=== PATIENT | male | born 1960 | race Caucasian/White ===

== ENCOUNTER 2019-02-04 22:33 | Emergency (ER) | payer OTHER ==
[~2019-02-04] VITALS: Ht 185.4 cm; Wt 115.9 kg
[2019-02-04] MEDS ORDERED: normal saline 1000ML IV soln IV ONE (22:55)
[2019-02-04] MEDS ORDERED: ondansetron/PF 4mg/2ml inj IV ONE (22:55)
--- NOTE | 2019-02-04 22:55 | NUR ---
PT TO XRAY
--- NOTE | 2019-02-04 23:01 | NUR ---
PT BACK FROM X RAY
[2019-02-04 23:30] LABS: CLARITY,URINE CLEAR (Clear); COLOR,URINE YELLOW (Yellow); GLUCOSE, URINE NEGATIVE (Neg); KETONES,URINE NEGATIVE (Neg); LEUKOCYTE ESTERASE ,URINE NEGATIVE (Neg); NITRITES, URINE NEGATIVE (Neg); OCCULT BLOOD,URINE NEGATIVE (Neg); PROTEIN,URINE NEGATIVE (Neg)
[2019-02-04 23:31] LABS: UA COLLECTION TYPE CLN CATCH MIDSTREAM
[2019-02-04 23:44] LABS: ALANINE AMINOTRANSFERASE 155 U/L (12-78); ALBUMIN 2.9 G/DL (3.4-5.0); ALBUMIN/GLOBULIN RATIO 0.9 (1.1-1.5); ALKALINE PHOSPHATASE 212 IU/L (46-116); ANION GAP 9 (8-16); ASPARTATE AMINO TRANSFERASE 109 U/L (10-37); BILIRUBIN,TOTAL 0.8 MG/DL (0.1-1.0); BLOOD UREA NITROGEN 7 MG/DL (7-18); BUN/CREATININE RATIO 6.9 (5.4-32.0); CALCIUM 7.8 MG/DL (8.5-10.1); CHLORIDE 96 MMOL/L (99-107); CREATININE 1.02 MG/DL (0.60-1.10); GLUCOSE 153 MG/DL (70-104); MAGNESIUM 1.5 MG/DL (1.5-2.4); POTASSIUM 3.7 MMOL/L (3.5-5.1); SODIUM 131 MMOL/L (135-145); TOTAL CARBON DIOXIDE 26.1 MMOL/L (24-32); TOTAL PROTEIN 6.3 G/DL (6.4-8.2); eGFR 75 ML/MIN
[2019-02-04 23:59] LABS: BASOPHILS # (AUTO) 0.1 X10'3 (0-0.2); BASOPHILS % (AUTO) 1.2 % (0-1); EOSINOPHILS % (AUTO) 0.4 % (0-6); HEMATOCRIT 38.6 % (42.0-52.0); HEMOGLOBIN 13.9 g/dl (14.0-17.9); LYMPHOCYTES # (AUTO) 2.2 X10'3 (1.1-4.8); LYMPHOCYTES % (AUTO) 37.7 % (21-51); MEAN CORPUSCULAR HEMOGLOBIN 32.1 PG (27.0-31.0); MEAN CORPUSCULAR VOLUME 89.2 FL (78-98); MEAN PLATELET VOLUME 8.2 FL (7.4-10.4); MONOCYTES # (AUTO) 0.5 X10'3 (0-0.9); MONOCYTES % (AUTO) 8.9 % (2-12); NEUTROPHILS # (AUTO) 3.1 X10'3 (1.8-7.7); NEUTROPHILS % (AUTO) 51.8 % (42-75); PLATELET COUNT 97 X10'3 (140-440); RED BLOOD COUNT 4.33 X10'6 (4.70-6.10); RED CELL DISTRIBUTION WIDTH 13.2 % (11.5-14.5); WHITE BLOOD COUNT 5.9 X10'3 (4.5-11.0)
[2019-02-05 00:16] LABS: PLATELET ESTIMATE DECREASED
[2019-02-05 00:17] LABS: SPHEROCYTES FEW
[2019-02-05 00:41] VITALS: BP 125/67
== END 2019-02-05 00:44 | disposition home or self-care (01) ==
LOC: ER 22:35
DX: B34.9 Viral infection, unspecified (principal); R50.9 Fever, unspecified; R05 Cough; R51 Headache; R61 Generalized hyperhidrosis; R53.83 Other fatigue; R11.0 Nausea; F41.9 Anxiety disorder, unspecified
CPT/HCPCS: 36415; 71046; 80053; 81003; 83605; 83735; 84145; 85025; 87040; 93005; 96374; 99284; J2405; J7030

== ENCOUNTER 2019-07-01 10:06 | Emergency (ER) | payer OTHER ==
[~2019-07-01] VITALS: Ht 185.4 cm; Wt 112.3 kg
[2019-07-01 10:07] VITALS: BP 133/92
[2019-07-01] MEDS ORDERED: META-110 PO (10:29)
[2019-07-01] MEDS ORDERED: PRED20TA PO (10:29)
== END 2019-07-01 10:35 | disposition home or self-care (01) ==
LOC: ER 10:06
DX: M54.41 Lumbago with sciatica, right side (principal); M79.604 Pain in right leg; F41.9 Anxiety disorder, unspecified; Z79.899 Other long term (current) drug therapy
CPT/HCPCS: 99283